=== PATIENT | female | born 1990 | race African-American/Black ===

== ENCOUNTER 2022-10-01 16:13 | Emergency (ER) | payer MEDICAID ==
[~2022-10-01] VITALS: Ht 167.6 cm; Wt 81.0 kg
[2022-10-01] MEDS ORDERED: KETOROLAC TROMETHAMINE 60 MG/2 ML VIAL IM ONE (17:00)
[2022-10-01] MEDS ORDERED: METHOCARBAMOL 500 MG TABLET PO ONE (17:00)
[2022-10-01 18:02] VITALS: BP 122/61
[2022-10-01] MEDS ORDERED: CYCL-448 PO (18:46)
[2022-10-01] MEDS ORDERED: NAPR-1025 PO (18:46)
== END 2022-10-01 19:06 | disposition home or self-care (01) ==
LOC: EMS 16:39
DX: S16.1XXA Strain of muscle, fascia and tendon at neck level, initial encounter (principal); S80.01XA Contusion of right knee, initial encounter; G44.209 Tension-type headache, unspecified, not intractable; J45.909 Unspecified asthma, uncomplicated; F12.90 Cannabis use, unspecified, uncomplicated; Z98.890 Other specified postprocedural states; Y04.8XXA Assault by other bodily force, initial encounter; Y93.89 Activity, other specified; Y92.89 Other specified places as the place of occurrence of the external cause; Y99.8 Other external cause status
CPT/HCPCS: 99284; 70450; 73562; 72125; 96372; J1885

== ENCOUNTER 2022-10-08 19:46 | Emergency (ER) | payer MEDICAID ==
[~2022-10-08] VITALS: Ht 167.6 cm; Wt 79.5 kg
[~2022-10-08 19:46] MED LIST: CYCL-448 PO; NAPR-1025 PO
[2022-10-08 20:09] LABS: COVID AG,FIA SOURCE NASAL SWAB
[2022-10-08 20:34] LABS: INFLUENZA TYPE A NEGATIVE FOR TYPE A (NEGATIVE); INFLUENZA TYPE B NEGATIVE FOR TYPE B (NEGATIVE)
[2022-10-08] MEDS ORDERED: BACITRACIN 0.9 GM PACKET OINTMENT TP ONE (21:00)
[2022-10-08] MEDS ORDERED: KETOROLAC TROMETHAMINE 10 MG TABLET PO ONE (21:00)
[2022-10-08] MEDS ORDERED: BENZ-70 PO (21:23)
[2022-10-08] MEDS ORDERED: PROM118S5 PO (21:23)
[2022-10-08 21:30] VITALS: BP 114/58
[2022-10-08] MEDS ORDERED: BACI28OI29 TP (21:35)
== END 2022-10-08 21:40 | disposition home or self-care (01) ==
LOC: EMS 19:46
DX: S91.312A Laceration without foreign body, left foot, initial encounter (principal); S90.32XA Contusion of left foot, initial encounter; Z20.822 Contact with and (suspected) exposure to COVID-19; F10.20 Alcohol dependence, uncomplicated; F12.90 Cannabis use, unspecified, uncomplicated; J06.9 Acute upper respiratory infection, unspecified; J45.909 Unspecified asthma, uncomplicated; X58.XXXA Exposure to other specified factors, initial encounter; Y93.89 Activity, other specified; Y92.89 Other specified places as the place of occurrence of the external cause; Y99.8 Other external cause status
CPT/HCPCS: 71045; 87804; 99284